=== PATIENT | female | born 1995 | race Caucasian/White ===

== ENCOUNTER 2019-01-02 15:16 | Emergency (ER) | payer MEDICAID ==
[~2019-01-02] VITALS: Ht 162.6 cm; Wt 60.3 kg
[2019-01-02 15:29] VITALS: Ht 162.6 cm; Wt 60.3 kg
[2019-01-02 18:42] VITALS: BP 116/70
== END 2019-01-02 18:42 | disposition home or self-care (01) ==
LOC: ED 15:16
DX: N12 Tubulo-interstitial nephritis, not specified as acute or chronic (principal)
CPT/HCPCS: J1885; J2405; J7030; Q0162